=== PATIENT | male | born 1955 ===

== ENCOUNTER 2018-10-24 15:56 | Emergency (ER) | payer MEDICAID ==
[2018-10-24 15:56] VITALS: PULSE 77
[2018-10-24 16:26] VITALS: BP 122/75; PULSE 85; RESP 18; TEMP 98.3; O2SAT 98
[2018-10-24] MEDS ORDERED: Oxycodone/Acetaminophen 5/325 mg Tab PO STA (16:38)
[2018-10-24] MEDS ORDERED: Oxycodone/Acetaminophen 5/325 mg Tab ONE (16:52)
--- NOTE | 2018-10-24 17:12 | ED PDOC ---
HPI: General Adult Time Seen by Provider: 10/24/18 16:34 Chief Complaint (Nursing): Back Pain Chief Complaint (Provider): BACK PAIN History Per: Patient (63 Y/O MALE HERE WITH BACK PAIN THAT BEGAN THIS WEEK 4-5 DAYS AGO AFTER LIFTING HEAVY OBJECT. ATTEMPTED USE OF TYLENOL WITHOUT RELIEF OF SYMPTOMS. HAS H/O MILD BACK PAIN TROUBLE INTERMITTENTLY.) Past Medical History Reviewed: Historical Data, Nursing Documentation, Vital Signs Vital Signs: Last Vital Signs Temp 98.3 F 10/24/18 16:21 Pulse 85 10/24/18 16:21 Resp 18 10/24/18 16:21 BP 122/75 10/24/18 16:21 Pulse Ox 98 10/24/18 16:21 Primary Care Provider: Darrion Torres Jr. - Medical History PMH: Anxiety, Arthritis, CAD, Depression, HTN, Chronic Kidney Disease Denies: Diabetes, Hepatitis, HIV, Seizures, Sexually Transmitted Disease - Surgical History Surgical History: Pacemaker - Family History Family History: States: Unknown Family Hx - Immunization History Hx Tetanus Toxoid Vaccination: No Hx Influenza Vaccination: No Hx Pneumococcal Vaccination: No - Home Medications Home Medications: Ambulatory Orders Medication Instructions Recorded Aspirin [Aspirin Chewable] 81 mg PO DAILY 06/02/16 Benztropine [Cogentin] 1 mg PO DAILY 06/02/16 Dextran 70/Hypromellose/Pf 1 drop BOTHEYES PRN PRN 06/02/16 [Artificial Tears Drops] Diclofenac Sodium [Voltaren] 1 dose TOP PRN PRN 06/02/16 Digoxin [Digitek] 250 mcg PO DAILY 06/02/16 Disopyramide Phosphate 150 mg PO DAILY 06/02/16 Econazole Nitrate 1 appl TOP PRN PRN 06/02/16 Famotidine 20 mg PO DAILY 06/02/16 Finasteride 5 mg PO DAILY 06/02/16 Hydrocortisone-Pramoxine 1%-1% 1 appl TP PRN PRN 06/02/16 [Proctofoam] Lisinopril [Prinivil] 10 mg PO DAILY 06/02/16 Metoprolol Succinate 200 mg PO DAILY 06/02/16 Metoprolol Succinate XL [Toprol XL] 100 mg PO DAILY 06/02/16 Mirtazapine [Remeron] 30 mg PO DAILY 06/02/16 Multivitamin [Multi-Vitamin Daily] 1 tab PO DAILY 06/02/16 Omeprazole Magnesium [Prilosec Otc] 20 mg PO DAILY 06/02/16 Pravastatin Sodium 40 mg PO DAILY 06/02/16 Ranexa 500 mg PO Q12 06/02/16 Risperidone 2 mg PO DAILY 06/02/16 Simethicone 180 mg PO DAILY 06/02/16 Tamsulosin 0.4 mg PO DAILY 06/02/16 Topiramate 25 mg PO DAILY 06/02/16 Triamcinolone Acetonide [Kenalog 1 applic TOP PRN PRN 06/02/16 0.5% cream] Vitamin D 50,000 cap PO QWK 06/02/16 amLODIPine [Norvasc] 5 mg PO DAILY 06/02/16 Naproxen 375 mg PO Q8 PRN #15 tablet 10/24/18 diaZEpam [Valium] 5 mg PO Q8 PRN #4 tab 10/24/18 - Allergies Allergies/Adverse Reactions: Allergies Allergy/AdvReac Type Severity Reaction Status Date / Time No Known Allergies Allergy Verified 06/02/16 19:21 Review of Systems ROS Statement: Except As Marked, All Systems Reviewed And Found Negative Musculoskeletal: Positive for: Back Pain Physical Exam - Reviewed Nursing Documentation Reviewed: Yes Vital Signs Reviewed: Yes - Physical Exam Appears: Positive for: Well, Non-toxic, No Acute Distress Head Exam: Positive for: ATRAUMATIC, NORMAL INSPECTION, NORMOCEPHALIC Skin: Positive for: Normal Color, Warm, DRY Eye Exam: Positive for: EOMI, Normal appearance, PERRL ENT: Positive for: Normal ENT Inspection Neck: Positive for: Normal, Painless ROM Cardiovascular/Chest: Positive for: Regular Rate, Rhythm Respiratory: Positive for: CNT, Normal Breath Sounds Gastrointestinal/Abdominal: Positive for: Normal Exam, Soft Back: Positive for: Normal Inspection, Other (RIGHT PARALUMBAR TENDERNESS) Extremity: Positive for: Normal ROM Neurological/Psych: Positive for: Awake, Alert, Normal Tone - ECG O2 Sat by Pulse Oximetry: 98 Disposition - Clinical Impression Clinical Impression: Back strain - Patient ED Disposition Is Patient to be Admitted: No - Disposition Referrals: [facility] [Outside] Disposition: Routine/Home Disposition Time: 17:12 Condition: FAIR Prescriptions: diaZEpam [Valium] 5 mg PO Q8 PRN #4 tab PRN Reason: Muscle Spasm Naproxen 375 mg PO Q8 PRN #15 tablet PRN Reason: Pain, Moderate (4-7) Instructions: Low Back Pain in Adults Forms: [facility] ED School/Work Excuse Print Language: LATVIAN
== END 2018-10-24 17:14 | disposition home or self-care (01) ==
LOC: H.ER 15:56
DX: S39.012A Strain of muscle, fascia and tendon of lower back, initial encounter (principal); Z86.59 Personal history of other mental and behavioral disorders; I12.9 Hypertensive chronic kidney disease with stage 1 through stage 4 chronic kidney disease, or unspecified chronic kidney disease; I25.10 Atherosclerotic heart disease of native coronary artery without angina pectoris; N18.9 Chronic kidney disease, unspecified; Z79.82 Long term (current) use of aspirin; Z95.0 Presence of cardiac pacemaker; X58.XXXA Exposure to other specified factors, initial encounter
CPT/HCPCS: 96372; 99283; J1885